=== PATIENT | male | born 1965 | race African-American/Black ===

== ENCOUNTER 2024-04-16 17:23 | Emergency (ER) | payer OTHER ==
[2024-04-16 17:38] VITALS: RESP 18; BMI 20.9
[2024-04-16] MEDS ORDERED: HALOPERIDOL LACTATE 5 MG/ML ONE (19:26)
[2024-04-16] MEDS: HALOPERIDOL LACTATE 5 MG/ML IM ONE (19:45)
[2024-04-16 21:28] LABS: BASO % 1.4 % (0-2.0); EOS % 1.6 % (0-4.5); HEMATOCRIT 28.9 % (35.4-49); HEMOGLOBIN 9.9 GM/dL (11.7-16.9); LYMPH % 31.3 % (8-40); MCH 34.3 pg (25.7-33.7); MCHC 34.4 g/dl (32.0-35.9); MEAN CELL VOLUME 99.5 fl (80-96); MEAN PLT VOLUME 7.7 fl (7.5-11.1); MONO % 14.5 % (3.8-10.2); NEUT % 51.2 % (42.8-82.8); PLATELET COUNT 188 10^3/uL (134-434); RDW 15.2 % (11.9-15.9)
[2024-04-16 21:31] LABS: WHITE BLOOD COUNT 1.9 K/mm3 (4.0-10.0)
[2024-04-16 21:58] LABS: POTASSIUM 3.7 mmol/L (3.5-5.1)
[2024-04-16 22:01] LABS: ALBUMIN 2.9 g/dl (3.4-5.0); BLOOD UREA NITROGEN 12.9 mg/dL (7-18)
[2024-04-16 22:04] LABS: CREATININE 0.8 mg/dL (0.55-1.3)
[2024-04-16 22:05] LABS: BILIRUBIN,TOTAL 0.3 mg/dL (0.2-1); TOT PROT 6.3 g/dl (6.4-8.2)
[2024-04-16 22:17] LABS: ANISOCYTOSIS 2+; MACROCYTOSIS 0; TARGET CELLS 1+; TEAR DROP CELLS 1+
[2024-04-17 06:34] VITALS: TEMP 98.1
[2024-04-17 12:34] VITALS: BP 122/74; PULSE 72
== END 2024-04-17 13:03 | disposition home or self-care (01) ==
LOC: JER 17:23
PROC: 3E023GC Introduction of Other Therapeutic Substance into Muscle, Percutaneous Approach (ICD-10-PCS; principal; 2024-04-16)
PROC: 3E023GC Introduction of Other Therapeutic Substance into Muscle, Percutaneous Approach (ICD-10-PCS; 2024-04-16)
DX: R45.851 Suicidal ideations (principal)
CPT/HCPCS: 36415; 80053; 82962; 85025; 99284-25

== ENCOUNTER 2024-06-01 18:44 | Emergency (ER) | payer OTHER ==
[2024-06-01 18:55] VITALS: TEMP 97.8; BMI 21.3
[2024-06-01 20:43] LABS: BASO % 1.7 % (0-2.0); EOS % 1.5 % (0-4.5); HEMATOCRIT 35.8 % (35.4-49); HEMOGLOBIN 12.3 GM/dL (11.7-16.9); LYMPH % 29.1 % (8-40); MCH 33.5 pg (25.7-33.7); MCHC 34.3 g/dl (32.0-35.9); MEAN CELL VOLUME 97.7 fl (80-96); MONO % 18.7 % (3.8-10.2); PLATELET COUNT 331 10^3/uL (134-434); RBC 3.66 M/mm3 (4.00-5.60); RDW 13.6 % (11.9-15.9); WHITE BLOOD COUNT 3.8 K/mm3 (4.0-10.0)
[2024-06-01] MEDS ORDERED: ACETAMINOPHEN INJECTION 100 ML ONE (20:47)
[2024-06-01] MEDS: SODIUM CHLORIDE 0.9% 500 ML INFUS.BAG IV ONE (20:52)
[2024-06-01] MEDS: ACETAMINOPHEN 1000 MG/100 ML BAG IVPB ONE (20:52)
[2024-06-01 20:53] LABS: INR 1.07 (0.83-1.09); PROTHROMBIN TIME (PATIENT) 12.3 SEC (9.7-13.0)
[2024-06-01 20:55] LABS: ACTIVATED PTT 36.3 SECONDS (25.2-36.5)
[2024-06-01 21:08] LABS: POTASSIUM 3.8 mmol/L (3.5-5.1)
[2024-06-01 21:10] LABS: ALBUMIN 3.1 g/dl (3.4-5.0); BLOOD UREA NITROGEN 17.3 mg/dL (7-18); CALCIUM 8.3 mg/dL (8.5-10.1)
[2024-06-01 21:14] LABS: CREATININE 0.9 mg/dL (0.55-1.3)
[2024-06-01 21:15] LABS: BILIRUBIN,TOTAL 0.3 mg/dL (0.2-1); TOT PROT 6.9 g/dl (6.4-8.2)
[2024-06-01] MEDS ORDERED: GABAPENTIN 300 MG CAPSULE ONE (23:13)
[2024-06-01] MEDS: GABAPENTIN 300 MG CAPSULE PO ONE (23:16)
[2024-06-01 23:55] VITALS: BP 144/100; PULSE 77; RESP 16
== END 2024-06-02 00:40 | disposition home or self-care (01) ==
LOC: JER 18:44
PROC: 3E033NZ Introduction of Analgesics, Hypnotics, Sedatives into Peripheral Vein, Percutaneous Approach (ICD-10-PCS; principal; 2024-06-01)
DX: M79.604 Pain in right leg (principal); M79.605 Pain in left leg
CPT/HCPCS: 36415; 75635-TC; 80053; 84484; 85025; 85610; 85730; 93005; 93010; 96374; 99284-25; J0131; Q9967

== ENCOUNTER 2024-07-14 17:12 | Emergency (ER) | payer OTHER ==
[2024-07-14 17:27] VITALS: BP 153/90; PULSE 72; RESP 19; TEMP 97.9; BMI 22.0
[2024-07-14] MEDS ORDERED: predniSONE 20 MG TABLET (UD) ONE (18:36)
[2024-07-14] MEDS: predniSONE 20 MG TABLET (UD) PO ONE (18:42)
== END 2024-07-14 18:43 | disposition home or self-care (01) ==
LOC: JER 17:12
DX: M10.9 Gout, unspecified (principal); M79.641 Pain in right hand; M79.89 Other specified soft tissue disorders
CPT/HCPCS: 73110-TC-RT-FY; 73130-TC-RT-FY; 99283-25